=== PATIENT | male | born 1985 | race Two or more races ===

== ENCOUNTER 2020-02-28 21:58 | Inpatient (IN) | payer OTHER ==
[~2020-02-28] VITALS: Ht 167.6 cm; Wt 68.9 kg
--- NOTE | 2020-02-28 22:06 | NUR ---
TX FROM [facility] FOR JAUNDICE, REPORTS EPISODES OF VOMITING ON FRIDAY AND RLQ PAIN, PT IS IN CUSTODY WITH [facility]WAY. PLACED ON CARDIAC AND VITALS MONITORS, 3 GUARDS AT BEDSIDE.
[2020-02-28] MEDS ORDERED: SODIUM CHLORIDE 0.9% 1,000ML IVBOLUS ONE (22:30)
[2020-02-28] MEDS ORDERED: PIPERACILLIN/TAZO/PMX 3.375GM 50 ML IV ONE (22:30)
[2020-02-28] MEDS ORDERED: PLEASE ENTER ALLERGIES MC SCH (22:30)
[2020-02-28] MEDS ORDERED: SODIUM CHLORIDE FLUSH 10ML SYR IVF ONE (22:30)
--- NOTE | 2020-02-28 22:39 | NUR ---
LAB AT BEDSIDE FOR BLOOD CULTURES X2.
[2020-02-28] MEDS ORDERED: PIPERACILLIN/TAZO/PMX 3.375GM 50 ML ONE (22:40)
[2020-02-28 22:50] LABS: MEAN CORPUSCULAR HGB CONC 33.2 g/dL (33.2-36.2); MEAN PLATELET VOLUME 9.1 fL (7.4-10.4); PLATELET COUNT 206 x10^3/uL (130-400); RED BLOOD COUNT 5.26 x10^6/uL (4.38-5.82); RED CELL DISTRIBUTION WIDTH 14.9 % (9.4-14.8)
[2020-02-28 22:52] LABS: MICROSCOPIC NOT IND
--- NOTE | 2020-02-28 22:54 | NUR ---
IV ABX ADMIN AFTER BLOOD CX DRAWN X2.
[2020-02-28 23:00] LABS: INTERNATIONAL NORMALIZED RATIO 1.4 (0.93-1.1); PROTHROMBIN TIME 14.5 Seconds (9.6-11.5)
[2020-02-28 23:02] LABS: ALBUMIN 3.4 g/dL (3.4-5.0); ANION GAP 8 mmol/L (5-15); CALCIUM 8.7 mg/dL (8.5-10.1); CHLORIDE 104 mmol/L (98-107); CREATININE 1.05 mg/dL (0.7-1.3)
--- NOTE | 2020-02-28 23:08 | NUR ---
REPORT GIVEN TO DOMINIC QUINTANA Addendum: 02/28/20 at 2309 by KARTHIKEYAN REPORT GIVEN TO RYAN QUINTANA
[2020-02-28] MEDS: SODIUM CHLORIDE 0.9% 1,000 ML IV SCH (23:18)
[2020-02-28 23:22] LABS: MD YES
[2020-02-28] MEDS ORDERED: DOCUSATE 100 MG CAPSULE PO PRN (23:30)
[2020-02-28] MEDS ORDERED: hydrALAzine 20 MG/ML, 1ML IVPush PRN ×2 (23:30)
[2020-02-28] MEDS ORDERED: BISACODYL 10 MG SUPP PR PRN (23:30)
[2020-02-28] MEDS ORDERED: POLYETHYLENE GLYCOL 17 GM PACKET PO PRN (23:30)
[2020-02-28] MEDS ORDERED: ONDANSETRON 2MG/ML, 2ML IVPush PRN (23:30)
[2020-02-28] MEDS ORDERED: morphine SULFATE 10 MG/ML, 1ML IVPush PRN (23:30)
[2020-02-28] MEDS ORDERED: PROMETHAZINE 25 MG/ML, 1ML IM PRN (23:30)
[2020-02-28] MEDS ORDERED: ONDANSETRON ODT 4 MG PO PRN (23:30)
[2020-02-28 23:31] LABS: ALANINE AMINOTRANSFERASE 4349 U/L (12-78); ALKALINE PHOSPHATASE 190 U/L (45-117); TOTAL PROTEIN 6.3 g/dL (6.4-8.2)
[2020-02-28 23:33] LABS: <PLATELET ESTIMATE> ADEQUATE; <PLT MORPHOLOGY> NORMAL PLT MORPH; ANISOCYTOSIS 1+; LYMPH#(MANUAL) 9.52 x10^3/uL (1-3.4); LYMPHS% (MANUAL) 57 % (22-44); MONOS% (MANUAL) 3 % (2-9); REACTIVE LYMPHS # (MANUAL) 1.34 x10^3/uL (0-0); REACTIVE LYMPHS % (MANUAL) 8 % (0-0); SEG#(MANUAL) 5.34 x10^3/uL (1.8-6.8); SEGS% (MANUAL) 32 % (42-75)
[2020-02-28 23:36] VITALS: BP 114/68
[2020-02-29 01:37] VITALS: BP 111/67
[2020-02-29] MEDS: OXYcodone IR 5MG TABLET PO PRN ×4 (01:42→20:18)
[2020-02-29 02:11] LABS: AMPHETAMINE SCREEN, URINE Negative (Negative); BARBITURATE SCREEN, URINE Negative (Negative); BENZODIAZEPINE SCREEN, URINE Negative (Negative); CANNABINOID SCREEN, URINE Negative (Negative); COCAINE SCREEN, URINE Negative (Negative); METHADONE SCREEN, URINE Negative (Negative); OPIATE SCREEN, URINE Positive (Negative)
[2020-02-29 02:22] LABS: MEAN CORPUSCULAR HEMOGLOBIN 27.7 pg (27.5-34.5); MEAN CORPUSCULAR HGB CONC 32.8 g/dL (33.2-36.2); MEAN PLATELET VOLUME 9.2 fL (7.4-10.4); PLATELET COUNT 187 x10^3/uL (130-400); RED CELL DISTRIBUTION WIDTH 15.1 % (9.4-14.8)
[2020-02-29 02:31] LABS: % IRON SATURATION 43 % (20-55); IRON LEVEL 87 mcg/dL (65-175); TOTAL IRON BINDING CAPACITY 204 mcg/dL (250-450)
[2020-02-29 02:32] LABS: ALBUMIN 3.3 g/dL (3.4-5.0); ANION GAP 8 mmol/L (5-15); CALCIUM 8.2 mg/dL (8.5-10.1); CHLORIDE 106 mmol/L (98-107)
[2020-02-29 02:47] LABS: ALANINE AMINOTRANSFERASE 3751 U/L (12-78); ALKALINE PHOSPHATASE 175 U/L (45-117); BILIRUBIN,TOTAL 8.3 mg/dL (0.2-1.0); CREATININE 1.07 mg/dL (0.7-1.3); TOTAL PROTEIN 5.8 g/dL (6.4-8.2)
[2020-02-29 03:17] LABS: MD YES
[2020-02-29 03:25] LABS: <PLATELET ESTIMATE> ADEQUATE; <PLT MORPHOLOGY> NORMAL PLT MORPH; ANISOCYTOSIS 1+; BAND#(MANUAL) 0.15 x10^3/uL; BANDS%(MANUAL) 1 % (0-7); EOS#(MANUAL) 0.15 x10^3/uL (0.0-0.4); EOS% (MANUAL) 1 % (1-7); LYMPH#(MANUAL) 8.61 x10^3/uL (1-3.4); LYMPHS% (MANUAL) 59 % (22-44); MONOS#(MANUAL) 0.88 x10^3/uL (0.3-2.7); MONOS% (MANUAL) 6 % (2-9); REACTIVE LYMPHS # (MANUAL) 1.61 x10^3/uL (0-0); REACTIVE LYMPHS % (MANUAL) 11 % (0-0); SEG#(MANUAL) 3.21 x10^3/uL (1.8-6.8); SEGS% (MANUAL) 22 % (42-75)
[2020-02-29 07:27] VITALS: BP 119/74
[2020-02-29] MEDS: PHYTONADIONE 10 MG/ML, 1ML SQ SCH (08:21)
[2020-02-29] MEDS: SODIUM CHLORIDE 0.9% 1,000 ML IV SCH (10:22)
[2020-02-29 12:56] VITALS: BP 107/66
[2020-02-29 15:20] LABS: ANA SCREEN NEGATIVE (Negative)
[2020-02-29 19:09] VITALS: BP 117/78
[2020-03-01 01:22] VITALS: BP 105/69
[2020-03-01 06:14] LABS: MEAN CORPUSCULAR HEMOGLOBIN 27.6 pg (27.5-34.5); MEAN CORPUSCULAR HGB CONC 32.3 g/dL (33.2-36.2); MEAN PLATELET VOLUME 8.5 fL (7.4-10.4); PLATELET COUNT 168 x10^3/uL (130-400); RED BLOOD COUNT 4.62 x10^6/uL (4.38-5.82); RED CELL DISTRIBUTION WIDTH 15.1 % (9.4-14.8)
[2020-03-01 06:47] LABS: ANION GAP 4 mmol/L (5-15); CALCIUM 8.4 mg/dL (8.5-10.1); CHLORIDE 111 mmol/L (98-107)
[2020-03-01 06:48] LABS: MD YES
[2020-03-01 06:50] LABS: REACTIVE LYMPHS # (MANUAL) 0.37 x10^3/uL (0-0); REACTIVE LYMPHS % (MANUAL) 6 % (0-0)
[2020-03-01 06:53] LABS: EOS% (MANUAL) 5 % (1-7); LYMPH#(MANUAL) 3.23 x10^3/uL (1-3.4); LYMPHS% (MANUAL) 53 % (22-44)
[2020-03-01 06:54] LABS: BASOS#(MANUAL) 0.06 x10^3/uL (0-0.1); BASOS% (MANUAL) 1 % (0-1); EOS#(MANUAL) 0.31 x10^3/uL (0.0-0.4); MONOS#(MANUAL) 0.31 x10^3/uL (0.3-2.7); MONOS% (MANUAL) 5 % (2-9)
[2020-03-01 06:55] LABS: SEG#(MANUAL) 1.83 x10^3/uL (1.8-6.8); SEGS% (MANUAL) 30 % (42-75)
[2020-03-01 06:56] LABS: <PLATELET ESTIMATE> ADEQUATE; <PLT MORPHOLOGY> NORMAL PLT MORPH; ANISOCYTOSIS 1+
[2020-03-01 07:00] LABS: ALANINE AMINOTRANSFERASE 2593 U/L (12-78); ALBUMIN 2.8 g/dL (3.4-5.0); ALKALINE PHOSPHATASE 146 U/L (45-117); BILIRUBIN,TOTAL 5.2 mg/dL (0.2-1.0); TOTAL PROTEIN 5.5 g/dL (6.4-8.2)
[2020-03-01 07:25] VITALS: BP 111/77
[2020-03-01] MEDS: PHYTONADIONE 10 MG/ML, 1ML SQ SCH (08:22)
[2020-03-01] MEDS: OXYcodone IR 5MG TABLET PO PRN ×3 (08:22→19:56)
[2020-03-01 13:10] VITALS: BP 110/66
[2020-03-01 19:40] VITALS: BP 118/76
[2020-03-02 02:45] VITALS: BP 112/64
[2020-03-02 06:25] LABS: ALBUMIN 3.1 g/dL (3.4-5.0); ANION GAP 4 mmol/L (5-15); CALCIUM 9.1 mg/dL (8.5-10.1); CHLORIDE 109 mmol/L (98-107)
[2020-03-02 06:35] LABS: ALANINE AMINOTRANSFERASE 2103 U/L (12-78); ALKALINE PHOSPHATASE 150 U/L (45-117); BILIRUBIN,TOTAL 4.3 mg/dL (0.2-1.0); CREATININE 1.16 mg/dL (0.7-1.3); TOTAL PROTEIN 6.1 g/dL (6.4-8.2)
[2020-03-02 09:04] VITALS: BP 109/69
[2020-03-02] MEDS: PHYTONADIONE 10 MG/ML, 1ML SQ SCH (09:39)
[2020-03-02] MEDS: OXYcodone IR 5MG TABLET PO PRN (09:45)
[2020-03-02] MEDS ORDERED: DOCU100C33 PO (11:20)
[2020-03-02] MEDS ORDERED: OXYC5TAB3 PO (11:20)
[2020-03-02] MEDS ORDERED: ONDA4TAB13 PO (11:20)
[2020-03-02 15:59] VITALS: BP 106/67
== END 2020-03-02 16:28 | disposition home or self-care (01) | DRG 442 ==
LOC: ED 22:57 → EDIP 23:09 → 3N 23:18
PROVIDERS: ADMIT Internal Medicine; ATTEND Family Medicine
DX: B17.9 Acute viral hepatitis, unspecified (principal); D68.9 Coagulation defect, unspecified; B18.2 Chronic viral hepatitis C; D72.829 Elevated white blood cell count, unspecified; Z03.818 Encounter for observation for suspected exposure to other biological agents ruled out
CPT/HCPCS: 36415; 74181; 76700; 80053; 80074; 80307; 81003; 82103; 82390; 83516; 83540; 83550; 83605; 83690; 83735; 84443; 85025; 85610; 85730; 86038; 87040; 87521; 87522; 87635; 93005; 93306; G0378; J2543; J3430; J7030